=== PATIENT | female | born 1945 | race Caucasian/White ===

== ENCOUNTER 2021-05-22 09:28 | Outpatient (CLI) | payer MEDICARE, SELFPAY ==
--- NOTE | 2021-05-22 09:36 | US_ITS ---
HISTORY: Mid to left abdominal pain for one month, born with only one kidney TECHNIQUE: Keller scale and color doppler imaging was performed of the abdominal structures. COMPARISON: None FINDINGS: LIVER: Normal in size and echogenicity. No focal lesion identified. Right lobe measures 17.6 cm length. Main portal vein patent with normal directional flow. PANCREAS: Unremarkable as visualized. GALLBLADDER AND BILIARY TREE: Echogenic sludge and debris within gallbladder lumen. 2 shadowing gallstones identified. 1.7 cm diameter stone within gallbladder fundus and 2.1 cm diameter stone within the gallbladder neck. Gallbladder is distended, 10 cm length. No gallbladder wall thickening or pericholecystic fluid demonstrated. Sonographic Braun's sign is negative. No intrahepatic or extrahepatic biliary ductal dilation. Common bile duct measures 4.2 mm. KIDNEYS: The left kidney measures 12.3 cm in length and right kidney is absent. No hydronephrosis. No focal parenchymal lesion or shadowing stones. SPLEEN: Normal size and echotexture Spleen measures 11 cm length. No discrete lesion. AORTA AND IVC: Atherosclerotic plaque within abdominal aorta. No aortic aneurysm demonstrated. Unremarkable IVC. US/Abdomen Complete IMPRESSION: 1. Distended gallbladder with gallstones and sludge but no secondary signs of acute cholecystitis. 2. Absent right kidney with unremarkable left kidney. at 0133 Reported and signed by: Aj Jo MD Electronically Signed: Aj Jo MD at 1:32 EDT ,
== END 2021-05-22 23:59 | disposition home or self-care (01) ==
PROVIDERS: PCP Family Medicine; Referring Provider Family Medicine; Visit Provider Family Medicine
DX: R10.9 Unspecified abdominal pain (principal)
CPT/HCPCS: 76700

== ENCOUNTER 2021-06-06 08:45 | Outpatient (CLI) | payer MEDICARE, SELFPAY ==
--- NOTE | 2021-06-06 08:48 | VDLE_ITS ---
Reason For Study: pain Procedure LEFT This is a venous duplex using B-mode, color GSV is normal. flow and spectral Doppler. CFV is compressible, spontaneous, phasic, Exam performed in department. competent, and demonstrates normal The exam was abbreviated due to the COVID 19 augmentation. protocol. FV is compressible, spontaneous, phasic, The exam was diagnostic. competent and demonstrates normal A preliminary report was called and/or faxed augmentation. to Dr. Lara. POP V is compressible, spontaneous, phasic, competent and demonstrates normal augmentation. T/P Trunk is compressible. PTV is compressible. LT PerV is compressible. VL/Venous Duplex US, Unilateral Interpretation Summary There is no evidence of left lower extremity deep vein thrombosis. Left great s aphenous vein appears patent and compressible segmentally. Abbreviated COVID-19 protocol utilized Ordering Physician: Hernán Lara Performed By: Dallin Colón RVT
== END 2021-06-06 23:59 | disposition home or self-care (01) ==
LOC: CVS 08:46
PROVIDERS: PCP Family Medicine; Referring Provider Family Medicine; Visit Provider Family Medicine
DX: M79.652 Pain in left thigh (principal); M25.562 Pain in left knee
CPT/HCPCS: 93971

== ENCOUNTER 2021-06-14 07:36 | Outpatient (CLI) | payer MEDICARE, SELFPAY ==
--- NOTE | 2021-06-14 07:36 | CT_ITS ---
STUDY: CT ABDOMEN AND PELVIS WITH CONTRAST REASON FOR EXAM: Female, 76 years old. abd pain RADIATION DOSAGE (If Supplied By Facility): CTDIvol = ( 11.06 ) mGy, DLP = ( 567.82 ) mGycm TECHNIQUE: Transaxial images were obtained from the dome of the diaphragm to the symphysis pubis. Oral and amp; IV Gastrografin and amp; 75mL Isovue-300 was administered. Sagittal and coronal images were reconstructed. Individualized dose optimization techniques were used for this CT. COMPARISON: None. FINDINGS: LOWER CHEST: Calcified nodular granuloma in the right lower lobe. Coronary artery calcifications. LIVER: Mildly enlarged especially the left lobe, and heterogeneous. GALLBLADDER/BILE DUCTS: Gallstones in the gallbladder. PANCREAS: Unremarkable. SPLEEN: Unremarkable. ADRENAL GLANDS: Unremarkable. KIDNEYS / URETERS: Right kidney markedly atrophic. Left kidney is unremarkable. No hydronephrosis on the left. BOWEL / MESENTERY: Unremarkable. No bowel obstruction. APPENDIX: Not identified. No findings to suggest acute appendicitis. PERITONEUM: No free air. No free fluid. VESSELS: Abdominal aorta is normal caliber. RETROPERITONEUM: Unremarkable. REPRODUCTIVE ORGANS: Several calcified fibroids in the uterus, which is tilted to the right. BLADDER: Minimally distended. Prominent wall. ABDOMINAL WALL: Unremarkable. BONES: Degenerative changes in the lumbar spine and scoliosis. Mild degenerative changes at the hips. No acute abnormality. OTHER: None. CT/Abdomen/Pelvis WITH Contrast IMPRESSION: 1. Prominent urinary bladder wall is most likely due to nondistention, correlate for cystitis. 2. Cholelithiasis. 3. Hepatomegaly. 4. Markedly atrophic right kidney. 5. Fibroid uterus. Electronically Signed: Cortney Causey MD at 1:40 EDT ,
[2021-06-14 10:01] LABS: CREATININE FINGERSTICK 0.7 mg/dL (0.55-1.02); EGFR FINGERSTICK > 60.0000 mL/min (>60)
== END 2021-06-14 23:59 | disposition home or self-care (01) ==
LOC: CT 07:36
PROVIDERS: PCP Family Medicine; Visit Provider Surgery
DX: R10.9 Unspecified abdominal pain (principal)
CPT/HCPCS: 74177; Q9967

== ENCOUNTER → 2021-06-28 | Outpatient (CLI) | payer MEDICARE, SELFPAY ==
--- NOTE | 2021-07-03 11:51 | EKG12_ITS ---
Test Reason : PREOP Blood Pressure : / mmHG Vent. Rate : 087 BPM Atrial Rate : 087 BPM P-R Int : 142 ms QRS Dur : 074 ms QT Int : 352 ms P-R-T Axes : 028 023 013 degrees QTc Int : 423 ms Normal sinus rhythm with sinus arrhythmia Normal ECG Confirmed by MAGED ROBLES, NATHANAEL ([id number]), editor magazine HENRY JACOBSEN ([id number]) on 07/03/2021 2:04:19 PM Referred By: Roscoe Bowen Confirmed By:NATHANAEL LYNNE MD
[2021-07-03 13:36] LABS: Absolute Lymphocyte Count 1.95 X10^3/uL (0.83-4.51); Absolute Neutrophil Count 6.3 X10^3/uL (2.0-7.7); Basophil# 0.03 X10^3/uL; Basophil% 0.3 % (0-1); Eosinophil# 0.39 X10^3/uL; Eosinophils% 4.2 % (0-5); Hematocrit 36.5 % (37-47); Lymphocyte # 1.95 X10^3/ul (0.83-4.51); Mean Corp Hgb Conc 30.1 g/dL (32-36); Mean Corpuscular Hgb 23.9 pg (27.0-32.0); Mean Corpuscular Volume 79.3 fL (81-99); Mean Platelet Vol. 10.5 fl (6.2-12.0); Monocyte# 0.57 X10^3/uL; Monocyte% 6.1 % (0-10); NRBC Flagged by Analyzer 0 % (0-5); Neutrophil # 6.33 X10^3/uL (2.7-7.7); Neutrophil % 68.1 % (47-70); Platelet Count 327 K/mm3 (150-450); RBC Distribution Width CV 16.5 % (11.6-14.6); RBC Distribution Width SD 46.8 fl (35.1-43.9); White Blood Count 9.3 K/mm3 (4.4-11.0)
[2021-07-03 14:18] LABS: Anion Gap 10 (5-15); BUN 16 mg/dL (7-18); BUN/Creat Ratio 17.9 RATIO (10-20); Calcium,Total 9.6 mg/dL (8.5-10.1); Chloride 100 mmol/L (98-107); EST Glomerular Filtration Rate 65 mL/min (>60); Est Glom Filt Rate - Afr Amer 78 mL/min (>60); Glucose 205 mg/dL (74-106); Sodium Level 136 mmol/L (136-145); Thyroid Stim Hormone (TSH) 1.69 uIU/mL (0.358-3.74)
[2021-07-03 15:17] LABS: Hemoglobin A1c 10.1 % (3.8-5.6)
== END | disposition home or self-care (01) ==
LOC: PAT 07-31 20:25
PROVIDERS: Anesthesiology; PCP Family Medicine; Referring Provider Surgery; Visit Provider Surgery
DX: Z01.818 Encounter for other preprocedural examination (principal)
CPT/HCPCS: 36415; 80048; 83036; 84443; 85025; 93005

== ENCOUNTER → 2022-04-18 | Outpatient (CLI) | payer MEDICARE, SELFPAY ==
--- NOTE | 2022-04-18 08:30 | MRI_ITS ---
STUDY: MRI LUMBAR SPINE WITH AND WITHOUT CONTRAST REASON FOR EXAM: Female, 77 years old. IDD TECHNIQUE: Standardized fat and water weighted pulse sequences were obtained in the sagittal and axial planes. CLARISCAN 13ml via IV was administered for the contrast portion of the examination. COMPARISON: June 14, 2021 CT abdomen and pelvis FINDINGS: T12-L1: Normal endplates. Normal disc height, hydration and morphology. Normal bilateral facet joints. Normal central canal and bilateral lateral recesses. Normal bilateral intervertebral neural foramina. Normal lumbar lordosis. There is mild scoliosis. Normal conus medullaris that terminates at the L1-2. L1-2: Normal endplates. Normal disc height, hydration and morphology. Normal bilateral facet joints. Normal central canal and bilateral lateral recesses. Normal bilateral intervertebral neural foramina. L2-3: Normal endplates. Normal disc height, hydration and morphology. Normal bilateral facet joints. Normal central canal and bilateral lateral recesses. Normal bilateral intervertebral neural foramina. L3-4: Slight retrolisthesis and disc space narrowing. Circumferential disc marginal osteophyte. Moderate narrowing of the neural foramina bilaterally. Edema and enhancement noted involving the hypertrophic facet on the left. L4-5: Hypertrophic facet disease causing moderate trefoil type narrowing of the thecal sac and neural foramina. L5-S1: Normal endplates. Normal disc height, hydration and morphology. Hypertrophic bilateral facet joints. Edema and enhancement noted involving the hypertrophic facet joint on the right. Normal central canal and bilateral lateral recesses. Normal bilateral intervertebral neural foramina. Normal visualized sacral ala. Normal visualized paraspinous soft tissue structures. Right kidney not identified. MRI/Spine Lumbar W/WO Contrast IMPRESSION: Moderate scoliosis. Edema and enhancement involving the facets at L3-4 on the left and L5-S1 on the right. Multilevel spinal stenosis and neural foraminal narrowing as above. Electronically Signed: Brian Simons MD at 23:39 EST ,
[2022-04-19 07:42] LABS: CREATININE FINGERSTICK < 0.90 mg/dL (0.55-1.02); EGFR FINGERSTICK > 60 mL/min (>60)
== END | disposition home or self-care (01) ==
LOC: MRI 07:49
PROVIDERS: PCP Family Medicine
DX: M51.37 Other intervertebral disc degeneration, lumbosacral region (principal); M41.80 Other forms of scoliosis, site unspecified; M51.26 Other intervertebral disc displacement, lumbar region; M48.062 Spinal stenosis, lumbar region with neurogenic claudication
CPT/HCPCS: 72158; A9575

== ENCOUNTER → 2022-06-26 | Outpatient (CLI) | payer MEDICARE, SELFPAY ==
[2022-06-26 17:40] LABS: Hematocrit 41.7 % (37-47); Mean Corp Hgb Conc 31.2 g/dL (32-36); Mean Corpuscular Hgb 27.7 pg (27.0-32.0); Mean Corpuscular Volume 88.9 fL (81-99); Mean Platelet Vol. 10.2 fl (6.2-12.0); Platelet Count 256 K/mm3 (150-450); RBC Distribution Width CV 15.6 % (11.6-14.6); RBC Distribution Width SD 51.3 fl (35.1-43.9); Red Blood Count 4.69 M/mm3 (4.2-5.4); White Blood Count 6.5 K/mm3 (4.4-11.0)
[2022-06-26 17:51] LABS: Erythrocyte Sedimentation Rate 48 mm/hr (0-30)
[2022-06-28 16:09] LABS: Endomysial Antibody IgA Negative (Negative); Immunoglobulin A 237 mg/dL (64-422); t-Transglutaminase IgA <2 U/mL (0-3)
== END | disposition home or self-care (01) ==
LOC: MTLAB 16:29
PROVIDERS: PCP Family Medicine; Referring Provider Internal Medicine Gastroenterology; Visit Provider Internal Medicine Gastroenterology
DX: R19.7 Diarrhea, unspecified (principal)
CPT/HCPCS: 36415; 82784; 83516; 85027; 85652; 86140; 86255

== ENCOUNTER → 2022-07-02 | Outpatient (CLI) | payer MEDICARE, SELFPAY ==
--- NOTE | 2022-07-02 10:40 | MRI_ITS ---
STUDY: MRI THORACIC SPINE WITHOUT CONTRAST REASON FOR EXAM: Female, 77 years old. SCOLIOSIS back pain,, post lumbar surg back pain,difficult walking TECHNIQUE: Standardized fat and water weighted pulse sequences were obtained in the sagittal and axial planes. COMPARISON: MRI of the lumbar spine dated April 18, 2022 FINDINGS: The right kidney is not visualized in its expected abdominal position. Normal kyphosis of the thoracic spine. There is a levoscoliosis of the thoracic spine. No active marrow edema or acute fracture or compression deformity. No aggressive abnormalities are present. T1-2, T2-3, T3-4, T4-5, T5-6, T6-7, T7-8, T8-9, T9-10, T10-11, T11-12: Diffuse disc desiccation with mild to moderate asymmetric disc space narrowing at all visualized levels as well as endplate degenerative changes and spurring. Small disc protrusions at T4-T5 and T5-T6 and T8-T9 results in mild central canal stenosis without direct cord compression. Moderate-sized posterior Schmorl''s node at T6-T7. Posterior disc osteophyte complex/midline to right paracentral disc protrusion causes compression anterior aspect of the cord and moderate to severe central canal stenosis. Facet joint and ligament of flavum hypertrophy contribute to posterior mass effect on the cord as well. T11-T12: Mild central canal stenosis at T11-T12 with moderate to severe disc space narrowing and Modic endplate degenerative signal and a moderate size posterior Schmorl''s node. Diffuse disc bulge at T11-T12 contributing to mild central canal stenosis without cord compression. Moderate facet joint hypertrophy is also present at the T11-T12 level. Severe right foraminal stenosis with nerve root compression at T11-T12, due to significant facet joint hypertrophy and fluid distention. Mild multilevel foraminal stenosis demonstrated at the remaining levels. T12-L1: Moderate to severe disc space narrowing at T12-L1 and mild to moderate Modic endplate degenerative signal. Diffuse disc spur complex eccentric to the right results in mild central canal stenosis without cord compression. Normal visualized thoracic cord. Normal conus medullaris that terminates at the T12-L1 level. The soft tissue structures are unremarkable. MRI/Spine Thoracic (Routine) IMPRESSION: 1. Moderate multilevel degenerative changes of the thoracic spine. 2. Moderate to severe central canal stenosis at T11-T12 with compression on anterior aspect of the cord from a large disc protrusion osteophyte complex 3. Severe right foraminal stenosis at T11-T12 with nerve root compression 4. Mild central canal stenosis at T12-L1. 5. No active marrow edema or acute fracture or compression deformity. No aggressive abnormalities are present. Electronically Signed: Keshawn Nichols MD at 10:37 EDT ,
== END | disposition home or self-care (01) ==
PROVIDERS: PCP Family Medicine; Referring Provider Orthopaedic Surgery Orthopaedic Surgery of the Spine; Visit Provider Orthopaedic Surgery Orthopaedic Surgery of the Spine
DX: M41.86 Other forms of scoliosis, lumbar region (principal); M48.062 Spinal stenosis, lumbar region with neurogenic claudication; M54.16 Radiculopathy, lumbar region
CPT/HCPCS: 72146